=== PATIENT | female | born 1970 | race African-American/Black ===

== ENCOUNTER 2018-04-12 14:15 | Emergency (ER) | payer MEDICAID ==
[~2018-04-12] VITALS: Ht 160 cm; Wt 79.0 kg
[2018-04-12] MEDS: DIAZEPAM 5 MG TABLET PO ONE (22:30)
[2018-04-12] MEDS: KETOROLAC 60MG/2ML VIAL IM ONE (22:30)
[2018-04-12] MEDS: HYDROCODONE/ACETAMINOPHEN 5/325MG TABLET PO ONE (22:30)
[2018-04-12] MEDS: PREDNISONE 20MG TABLET PO ONE (22:30)
[2018-04-12 23:03] VITALS: BP 128/86
== END 2018-04-12 23:05 | disposition home or self-care (01) ==
LOC: ER 14:15
DX: G89.29 Other chronic pain (principal); M54.5 Low back pain; M25.551 Pain in right hip; E11.9 Type 2 diabetes mellitus without complications; I10 Essential (primary) hypertension; F17.200 Nicotine dependence, unspecified, uncomplicated
CPT/HCPCS: 96372; 99284; J1885; J7512; Z7610

== ENCOUNTER 2018-09-07 06:47 | Emergency (ER) | payer MEDICAID ==
[~2018-09-07] VITALS: Ht 160 cm; Wt 79.0 kg
[2018-09-07] MEDS ORDERED: KETOROLAC 60MG/2ML VIAL IM ONE (08:15)
[2018-09-07 08:17] VITALS: BP 139/85
== END 2018-09-07 08:43 | disposition home or self-care (01) ==
LOC: ER 06:47
DX: J20.9 Acute bronchitis, unspecified (principal); H92.03 Otalgia, bilateral; I10 Essential (primary) hypertension; E11.9 Type 2 diabetes mellitus without complications
CPT/HCPCS: 96372; 99283; J1885

== ENCOUNTER 2018-09-26 07:38 | Emergency (ER) | payer MEDICAID ==
[~2018-09-26] VITALS: Ht 160 cm; Wt 79.0 kg
[2018-09-26] MEDS ORDERED: KETOROLAC 60MG/2ML VIAL IM ONE (10:00)
[2018-09-26 12:00] VITALS: BP 136/90
== END 2018-09-26 12:01 | disposition home or self-care (01) ==
LOC: ER 07:58
DX: M65.841 Other synovitis and tenosynovitis, right hand (principal); I10 Essential (primary) hypertension; E11.9 Type 2 diabetes mellitus without complications; F17.210 Nicotine dependence, cigarettes, uncomplicated
CPT/HCPCS: 73110; 73130; 81025; 96372; 99283; J1885

== ENCOUNTER 2018-12-14 11:16 | Emergency (ER) | payer MEDICAID ==
[~2018-12-14] VITALS: Ht 160 cm; Wt 79.0 kg
[2018-12-14 15:01] VITALS: BP 120/85
[2018-12-14] MEDS: IBUPROFEN 600MG TABLET PO ONE (15:01)
== END 2018-12-14 15:24 | disposition home or self-care (01) ==
LOC: ER 11:16
DX: S63.91XA Sprain of unspecified part of right wrist and hand, initial encounter (principal); E11.9 Type 2 diabetes mellitus without complications; I10 Essential (primary) hypertension; M19.90 Unspecified osteoarthritis, unspecified site; F17.200 Nicotine dependence, unspecified, uncomplicated; Z98.890 Other specified postprocedural states; W01.0XXA Fall on same level from slipping, tripping and stumbling without subsequent striking against object, initial encounter; Y93.89 Activity, other specified; Y92.89 Other specified places as the place of occurrence of the external cause; Y99.8 Other external cause status
CPT/HCPCS: 73130; 81025; 99283

== ENCOUNTER 2019-02-27 17:14 | Emergency (ER) | payer MEDICAID ==
[~2019-02-27] VITALS: Ht 160 cm; Wt 77.0 kg
[2019-02-27] MEDS ORDERED: KETOROLAC 30MG/ML VIAL IM ONE (20:45)
[2019-02-27 22:47] VITALS: BP 118/80
== END 2019-02-27 23:16 | disposition home or self-care (01) ==
LOC: ER 17:14
DX: M25.552 Pain in left hip (principal); M79.672 Pain in left foot; M19.90 Unspecified osteoarthritis, unspecified site; E11.9 Type 2 diabetes mellitus without complications; I10 Essential (primary) hypertension; Z98.890 Other specified postprocedural states
CPT/HCPCS: 73502; 73630; 96372; 99283; J1885

== ENCOUNTER 2019-04-09 21:35 | Emergency (ER) | payer MEDICAID ==
[~2019-04-09] VITALS: Ht 160 cm; Wt 80.0 kg
[2019-04-09] MEDS ORDERED: MORPHINE SULFATE 4 MG/ML CPJ (NOT FOR IM USE) IV STA (22:46)
[2019-04-09] MEDS ORDERED: ONDANSETRON HCL 4MG/2ML INJ IV STA (22:46)
[2019-04-09 23:11] LABS: HEMATOCRIT. 43.2 % (36.0-48.0); HEMOGLOBIN. 15.3 g/dL (12.0-16.0); LYMPHOCYTES % 30.7 % (20.0-50.0); MEAN CORPUSCULAR HEMOGLOBIN 32.8 pg (28.0-32.0); MEAN CORPUSCULAR VOLUME 92.6 fL (81.0-99.0); MEAN PLATELET VOLUME 6.8 fl (7.4-10.4); MONOCYTES % 6.9 % (2.0-8.0); NEUTROPHILS % 58.4 % (40.0-76.0); PLATELET 338 x1000/uL (130-400); RED BLOOD CELL COUNT 4.67 mill/uL (4.2-5.4); RED CELL DISTRIBUTION WIDTH 13.2 % (11.6-14.6)
[2019-04-09 23:18] LABS: CHLORIDE 101 mEq/L (98-107)
[2019-04-09 23:22] LABS: HCG SCREEN NEGATIVE
[2019-04-10] MEDS ORDERED: BACITRACIN ZINC OINT UDPKT TOP ONE (01:45)
[2019-04-10 02:55] VITALS: BP 117/78
== END 2019-04-10 03:26 | disposition home or self-care (01) ==
LOC: ER 21:35
DX: S00.83XA Contusion of other part of head, initial encounter (principal); R22.0 Localized swelling, mass and lump, head; M54.2 Cervicalgia; I10 Essential (primary) hypertension; E11.9 Type 2 diabetes mellitus without complications; F17.210 Nicotine dependence, cigarettes, uncomplicated; E78.00 Pure hypercholesterolemia, unspecified; M19.90 Unspecified osteoarthritis, unspecified site; Z98.890 Other specified postprocedural states; V49.9XXA Car occupant (driver) (passenger) injured in unspecified traffic accident, initial encounter; Y93.89 Activity, other specified; Y92.481 Parking lot as the place of occurrence of the external cause; Y99.8 Other external cause status
CPT/HCPCS: 36415; 70486; 70491; 71045; 72125; 80053; 84703; 85025; 85610; 96374; 96375; 99284; 99406; J2270; J2405